=== PATIENT | male | born 1945 | race Caucasian/White ===

== ENCOUNTER 2016-08-27 13:08 | Day surgery (SDC) | payer MEDICARE, OTHER ==
--- NOTE | ~2016-08-27 | OP ---
Record Of Operation [facility] [address] [place]. [address] NAME: DANA TOLEDO JR : 49 STATUS : [facility] PAT#: [id number] AGE: 71 ADM/REG DATE : 08/27/16 MR#: [id number] REPORT SERV DATE: 08/27/16 DICTATED BY: GARRET COMER III DATE: 08/27/16 REPORT STATUS : Draft TRANSCRIBED BY: MODL DATE: 08/27/16 DATE OF PROCEDURE: 08/27/2016 PROCEDURE: Cystoscopy, left retrograde with fragmentation and removal of multiple left ureteral calculi. PREOPERATIVE DIAGNOSIS: Left renal calculi. POSTOPERATIVE DIAGNOSIS: Left renal calculi. ANESTHESIA: General. DESCRIPTION OF PROCEDURE: Following induction of adequate general anesthesia, patient was placed in dorsal lithotomy position, prepped and draped in a sterile fashion. The urethra was normal. The prostate was enlarged, somewhat friable. Bladder was entered. No tumors or stones were noted. Retrograde was done showing multiple, four or five, stones in the distal ureter. I passed a wire into the upper tract and then passed the ureteroscope. I was able to visualize the stones, however, there was a narrowing that although the scope would pass, none of the stones were small enough even though they were in the 2-3 mm range. Upon pulling the scope out, several of the small stones trickle down into the more distal ureter and I had a hard time clearing them. I finally cleared them and intended to place a balloon to dilate the distal narrowing, however, the numerous small fragments came down in this area, so I abandoned the dilatation and simply took a laser and fragmented the stones with a dusting and fragmentation mode. After approximately 45 minutes, I pulled out seven or eight small fragments. There was a lot of debris left in the ureter, perhaps at least one 3 mm stone, however, repeated trips in and out through the narrowed area had left the mucosa somewhat frayed, so I elected to stop and place a stent. There was virtually no way I was going to clear everything out to enable me to put a sheath in without potentially impacting stones against the wall of the ureter, so a 6, 26 stent was placed. A loop was placed in the bladder and a loop was placed in the upper pole. He tolerated the procedure well. OB/MODL Garret Comer III, M.D. / [id number] CC: Yvonne Matos III, M.D.
[~2016-08-27 13:08] MED LIST: CO Q-10100 MG PO; CYANO1000T PO; JANUMET XR 1001 EACH PO; LOFIB160 PO; NORCO1 TA1 PO; TOUJEO SQ
[2016-08-27 13:53] LABS: BASOPHILS 0.2 %; BASOPHILS ABSOLUTE 0.02 10/3/uL (0.0-0.16); EOSINOPHILS 0.3 %; EOSINOPHILS ABSOLUTE 0.04 10/3/uL (0.0-0.53); HEMOGLOBIN 12.9 g/dL (13.6-17.8); IMMATURE GRANULOCYTES 0.2 %; IMMATURE GRANULOCYTES ABSOLUTE 0.02 10/3/uL (0.0-0.11); LYMPHOCYTES 13.7 %; LYMPHOCYTES ABSOLUTE 1.57 10/3/uL (0.67-4.30); MEAN CORPUS HGB CONC 33.9 g/dL (32.0-36.0); MEAN CORPUSCULAR HEMOGLOB 27.6 pg (26.0-34.0); MEAN CORPUSCULAR VOLUME 81.4 fL (80-100); MEAN PLATELET VOLUME 10.5 fL (9.2-13.0); MONOCYTES 4.7 %; MONOCYTES ABSOLUTE 0.54 10/3/uL (0.21-1.20); NEUTROPHILS 80.9 %; NEUTROPHILS ABSOLUTE 9.25 10/3/uL (2.02-8.40); PLATELET COUNT 154 10/3/uL (150-400); RBC DISTRIBUTION WIDTH 13.5 % (12.0-16.0); RED CELL COUNT 4.67 10/6/uL (4.7-6.1); WHITE BLOOD CELLS 11.4 10/3/uL (4.5-10.5)
[2016-08-27 13:54] LABS: MANUAL DIFF NO %
[2016-08-27 14:03] LABS: BUN (BLOOD UREA NITROGEN) 30 MG/DL (6-23); CALCIUM, SERUM 8.9 MG/DL (8.5-10.4); CHLORIDE, SERUM 101 MMOL/L (96-112); CO2 (CARBON DIOXIDE) 27 MMOL/L (24-34); CREATININE 1.74 MG/DL (0.70-1.30); GFR AFRICAN AMERICAN 45 ML/MIN (>=60); GFR NON AFRICAN AMERICAN 39 ML/MIN (>=60); GLUCOSE, SERUM 162 MG/DL (60-99); POTASSIUM, SERUM 4.6 MMOL/L (3.5-5.3); SODIUM, SERUM 137 MMOL/L (135-148)
[2016-08-31 17:24] LABS: STONE COMPOSITION TWO DNR (())
[2016-09-09] MEDS ORDERED: VITAMIN D1000 UNI1 PO (12:10)
[2016-09-09] MEDS ORDERED: ASAB PO (12:10)
[2016-09-09] MEDS ORDERED: NORCO1 TA1 PO (12:13)
== END 2016-08-27 20:05 | disposition home or self-care (01) ==
LOC: SDC 13:08
PROVIDERS: Urology
PROC: 0WFR8ZZ Fragmentation in Genitourinary Tract, Via Natural or Artificial Opening Endoscopic (ICD-10-PCS; principal; 2016-08-27 14:45)
DX: N20.0 Calculus of kidney (principal); E11.9 Type 2 diabetes mellitus without complications; E66.9 Obesity, unspecified; Z79.4 Long term (current) use of insulin; Z79.899 Other long term (current) drug therapy
CPT/HCPCS: 71010; 74420; 80048; 82365; 82962; 85025; 93005; C1726; C1758; C1769; C2617; J2250; J2270; J2405; J2710; J3010; Q9967

== ENCOUNTER 2016-09-12 13:12 | Day surgery (SDC) | payer MEDICARE, OTHER ==
--- NOTE | ~2016-09-12 | OP ---
Record Of Operation [facility] [address] [place]. [address] NAME: DANA TOLEDO : 49 STATUS : [facility]#: [id number] AGE: 71 ADM/REG DATE : 09/12/16 MR#: [id number] REPORT SERV DATE: 09/12/16 DICTATED BY: GARRET COMER III DATE: 09/12/16 REPORT STATUS : Draft TRANSCRIBED BY: MODL DATE: 09/12/16 DATE OF PROCEDURE: 09/12/2016 PROCEDURE: Cystoscopy, left retrograde, left ureteroscopic stone fragmentation with holmium laser and removal of multiple ureteral calculi, and left renoscopy with fragmentation and removal of renal calculus. PREOPERATIVE DIAGNOSIS: Left ureteral calculi and left renal calculi. POSTOPERATIVE DIAGNOSIS: Left ureteral calculi and left renal calculi. PROCEDURE IN DETAIL: Anesthesia was induced with endotracheal tube, the patient was placed in the dorsal lithotomy position and prepped and draped in a sterile fashion. The urethra was examined and noted to be normal. The prostate was mildly enlarged. The bladder was entered, there were 3 to 4 stones lined up in the distal ureter at the ureterovesical junction, they were too close to the intramural tunnel to pass a balloon as had been the case the previous time. A wire was placed and the rigid scope was placed. The wire was removed, the stones were fragmented with a laser and tediously brought out all of the stones dropping them in the bladder. I then put a rigid scope up almost to the ureterovesical junction following which I dilated the distal ureter with a 4-cm balloon dilating kit. A 12 Uzbek 36-cm sheath was placed with a flexible scope, the flexible scope was passed, there were no proximal renal calculi, there was some blood in the kidney which was emptied. There was a mid pole stone of approximately 8 mm which was fragmented into very tiny fragments with dusting feature of the laser. Four to five fragments were removed from the stone. I then attempted to work on the lower pole stone. I could visualize the stone, but I could not get a laser fiber through the scope at an angle in which I could fragment it. I then tried to basket it and bring it to a different location, I was unsuccessful. I elected to leave the stone in place since I could not move it or fragment it. The renal pelvis was examined, several additional stones removed. The kidney was opacified, there was no extravasation, and the scope was brought out through the ureter, and retrograde was done on the pullout, no extravasation was noted. A 6 x 26 stent was placed with a loop in the upper pole and a loop in the bladder. The patient will keep the stent for 3 to 4 weeks, and we will remove it in the office. OB/MODL Garret Comer III, M.D. / [id number] CC: Yvonne Matos III, M.D.
--- NOTE | ~2016-09-12 | OP ---
Record Of Operation [facility] [address] [place]. [address] NAME: DANA TOLEDO : 49 STATUS : [facility]#: [id number] AGE: 71 ADM/REG DATE : 09/12/16 MR#: [id number] REPORT SERV DATE: 09/13/16 DICTATED BY: GARRET COMER III DATE: 09/12/16 REPORT STATUS : Draft TRANSCRIBED BY: MODL DATE: 09/12/16 DATE OF PROCEDURE: 09/12/2016 PROCEDURE: Cystoscopy, left retrograde, stone fragmentation, removal of multiple ureteral calculi, and fragmentation in partial and removal of a left renal stone. PREOPERATIVE DIAGNOSIS: Multiple ureteral calculi and renal calculi. POSTOPERATIVE DIAGNOSIS: Multiple ureteral calculi and renal calculi. ANESTHESIA: General. PROCEDURE IN DETAIL: Following induction of adequate general anesthesia, the patient placed in dorsal lithotomy position, prepped and draped in a sterile fashion. The urethra was examined and noted to be normal. Bladder was entered and the prostate was somewhat enlarged. No stone material was in the bladder. The left orifice was surprisingly not dilated after two to three weeks of stenting. In fact, I could not pass the rigid scope through this. On his initial stone removal, he had four or five distal stones that were so close, I could not dilate the orifice and I had to work through a tight distal intramural tunnel. This turned out to be the case again and a second wire was placed over the wire. The rigid scope was placed and using the dusting and fragmenting modes, the stones were gradually whittled down to small fragments and tediously removed. I then had a wire up in the kidney and we dilated the distal ureter with a UroMax balloon 4 cm at 10 atmospheres. I then looked in up to almost to the UPJ with the rigid scope, there were no significant fragments remaining. There were two calculus in the kidney, one in the mid pole and one in the very lower lateral pole. A 12-Swedish sheath was placed into the proximal ureter. The flexible ureteroscope was placed into the kidney and the mid pole caliceal stone was fragmented into innumerable small fragments with a dusting laser. Four or five fragments were removed that were larger. The stone was inferior and lateral, required a good deal of torquing and I had difficulty passing the laser or the basket into this area. After the flexing of the scope, I could see the stone, but could not angle the basket to bring it out or the laser. The stone was dependent and I had been in the kidney and over the ureter for over an hour and a half and I felt that I needed to stop the procedure considering the fact I had some pressure with the flexible scope and constant photo retoucher with our access sheath. A double-J stent was placed with a loop and the upper pole loop in the bladder. The patient tolerated the procedure well. The 626 stent was placed with no string and he will come back in three to four weeks for KUB and removal. OB/MODL Garret Comer III, M.D. / [id number] Record Of [address] [address] NAME: DANA TOLEDO : 49 STATUS : [facility] PAT#: [id number] AGE: 71 ADM/REG DATE : 09/12/16 MR#: [id number] REPORT SERV DATE: 09/13/16 DICTATED BY: GARRET COMER III DATE: 09/12/16 REPORT STATUS : Draft TRANSCRIBED BY: ESTRELLA DATE: 09/12/16 CC: Yvonne Matos III, M.D.
[~2016-09-12 13:12] MED LIST changes: +ASAB PO; +VITAMIN D1000 UNI1 PO
[2016-09-19 20:03] LABS: STONE COMPOSITION TWO DNR (())
== END 2016-09-12 21:29 | disposition home or self-care (01) ==
LOC: SDC 13:12
PROVIDERS: Urology
PROC: 0TC18ZZ Extirpation of Matter from Left Kidney, Via Natural or Artificial Opening Endoscopic (ICD-10-PCS; 2016-09-12)
PROC: 0TC78ZZ Extirpation of Matter from Left Ureter, Via Natural or Artificial Opening Endoscopic (ICD-10-PCS; principal; 2016-09-12 14:45)
DX: N20.2 Calculus of kidney with calculus of ureter (principal); E11.22 Type 2 diabetes mellitus with diabetic chronic kidney disease; N18.3 Chronic kidney disease, stage 3 (moderate); Z90.49 Acquired absence of other specified parts of digestive tract; Z90.89 Acquired absence of other organs
CPT/HCPCS: 74420; 82365; 82962; C1726; C1769; C1894; C2617; J2405; J2710; J3010; Q9967